=== PATIENT | male | born 1990 | race Asian ===

== ENCOUNTER → 2020-11-12 08:57 | Outpatient (CLI) | payer OTHER, SELFPAY ==
[2020-11-12 09:55] LABS: COVID19 -Nasal RAPID Negative (Negative)
== END ==
PROVIDERS: Visit Provider Family Medicine Sleep Medicine
DX: Z20.822 Contact with and (suspected) exposure to COVID-19 (principal); G47.33 Obstructive sleep apnea (adult) (pediatric)
CPT/HCPCS: 87635; 95810

== ENCOUNTER → 2020-12-18 08:21 | Outpatient (CLI) | payer OTHER, SELFPAY ==
[2020-12-18 10:21] LABS: COVID19 -Nasal RAPID Negative (Negative)
== END ==
PROVIDERS: Visit Provider Family Medicine Sleep Medicine
DX: Z20.822 Contact with and (suspected) exposure to COVID-19 (principal); G47.33 Obstructive sleep apnea (adult) (pediatric); G47.01 Insomnia due to medical condition; G47.19 Other hypersomnia; E66.9 Obesity, unspecified; Z87.898 Personal history of other specified conditions
CPT/HCPCS: 87635; 95811

== ENCOUNTER → 2022-05-01 18:09 | Outpatient (CLI) | payer OTHER, SELFPAY ==
--- NOTE | 2022-05-01 | DI.MRI.S_ITS ---
PROCEDURE: MR WRIST RT WO CON INDICATIONS: PAIN IN RIGHT WRIST TECHNIQUE: Noncontrast coronal proton density fast spin echo and T2 fast spin echo with fat saturation; coronal 3-D gradient echo, axial T1 spin echo and T2 fast spin echo with fat saturation, sagittal T1 spin echo through the wrist. COMPARISON: None. FINDINGS: Image quality: Excellent. Bones and cartilage: The carpal bones are normally aligned. No bone marrow contusions or fractures. No evidence for avascular necrosis. Focal cystic change versus chronic erosion at the radial aspect of the lunate. Minimal degenerative spurring is seen at the base of the 1st metacarpal. A type 2 lunate is seen with mild degenerative changes at the hamatolunate articulation. Carpal ligaments: The scapholunate and lunotriquetral ligaments appear intact. On sagittal images, the pisohamate ligament appears intact. Triangular fibrocartilage complex: The triangular fibrocartilage appears intact. Tendons and soft tissues: The carpal tunnel structures appear normal, including the median nerve. The ulnar nerve appears normal within Guyon's canal. Mild extensor carpi ulnaris tendinosis and trace tenosynovitis. The remaining extensor tendon compartments demonstrate normal morphology, without pathologic tendon sheath fluid. No soft tissue ganglion cysts. IMPRESSION: 1. Mild extensor carpi ulnaris tendinosis and trace tenosynovitis. 2. Cystic changes at the radial aspect of the lunate may be degenerative or posttraumatic in nature versus related to chronic ligamentous traction or possibly a chronic erosion. 3. Minimal degenerative changes at the 1st carpometacarpal joint and hamatolunate articulation. Dictated by: Jozef Leiva M.D. on 05/05/2022 at 8:30 Approved by: Jozef Leiva M.D. on 05/05/2022 at 8:44
== END ==
PROVIDERS: PCP Nurse Practitioner Family; Referring Provider Orthopaedic Surgery; Visit Provider Orthopaedic Surgery
DX: M25.531 Pain in right wrist (principal); M65.831 Other synovitis and tenosynovitis, right forearm
CPT/HCPCS: 73221